=== PATIENT | male | born 1985 | race African-American/Black ===

== ENCOUNTER 2021-11-27 12:55 | Inpatient (IN) | payer OTHER, MEDICAID ==
[~2021-11-27] VITALS: Ht 167.6 cm; Wt 76.2 kg
[2021-11-27] MEDS ORDERED: ACETAMINOPHEN 325 MG TABLET PO PRN (16:45)
[2021-11-27 17:10] VITALS: BP 115/57
[2021-11-27] MEDS: ETHYL ALCOHOL 62% ANTISEPTIC NASAL SANITIZER 0.6 ML AMPUL NASAL SCH (20:20)
[2021-11-27] MEDS: DOCUSATE SODIUM 100 MG CAPSULE PO SCH (20:21)
[2021-11-27] MEDS: PANTOPRAZOLE SODIUM 40 MG DR TABLET PO SCH (20:21)
[2021-11-27] MEDS: MELATONIN 3 MG TABLET PO PRN (20:21)
[2021-11-27] MEDS: RIFAXIMIN 550 MG TABLET PO SCH (20:22)
[2021-11-27] MEDS: SENNA 187 MG TABLET PO SCH (20:23)
[2021-11-27] MEDS: LACTULOSE 20 GM/30 ML SOLUTION UDCUP PO SCH (20:23)
[2021-11-27] MEDS ORDERED: PANTOPRAZOLE SODIUM 40 MG DR TABLET PO SCH (21:00)
[2021-11-28 01:30] VITALS: BP 114/59
[2021-11-28 07:22] LABS: BASOPHILS % (AUTO) 0.6 % (0.0-2.0); EOSINOPHILS % (AUTO) 2.6 % (1.0-6.0); HEMATOCRIT 21.2 % (41-53); HEMOGLOBIN 7.2 g/dL (13.5-17.5); LYMPHOCYTES # (AUTO) 2.2 K/uL (1.0-4.8); LYMPHOCYTES % (AUTO) 30.5 % (22.0-44.0); MEAN CORPUSCULAR HEMOGLOBIN 31.1 pg (26.0-34.0); MEAN CORPUSCULAR HGB CONC 33.8 G/dL (31.0-37.0); MEAN CORPUSCULAR VOLUME 92 fL (80-100); MONOCYTES # (AUTO) 0.4 K/uL (0.1-1.0); MONOCYTES % (AUTO) 6.1 % (2.0-9.0); NEUTROPHILS # (AUTO) 4.3 K/uL (1.8-7.7); NEUTROPHILS % (AUTO) 60.2 % (40.0-70.0); PLATELET COUNT (AUTO) 137 K/uL (150-450); RED BLOOD CELL COUNT(AUTO) 2.31 MIL/uL (4.50-5.90); RED CELL DISTRIBUTION WIDTH 24.3 % (11.5-14.5)
[2021-11-28 07:29] LABS: ALANINE AMINOTRANSFERASE 35 U/L (12-78); ALBUMIN 1.7 g/dL (3.4-5.0); ALKALINE PHOSPHATASE 194 U/L (46-116); ANION GAP 8 mmol/L (8-16); ASPARTATE AMINOTRANSFERASE 56 U/L (15-37); BILIRUBIN,TOTAL 10.2 mg/dL (0.1-1.0); CALCIUM, TOTAL 7.8 mg/dL (8.8-10.5); CARBON DIOXIDE 24 mmol/L (22-29); CHLORIDE 104 mmol/L (98-107); CREATININE 0.84 mg/dL (0.60-1.30); GLOMERULAR FILTR. RATE CALC > 60 mL/min (>60); GLUCOSE,RANDOM 121 mg/dL (70-110); POTASSIUM 3.3 mmol/L (3.5-5.1); SODIUM SERUM 136 mmol/L (136-145); UREA NITROGEN, BLOOD 4 mg/dL (7-18)
[2021-11-28] MEDS: FOLIC ACID 1 MG TABLET PO SCH (08:22)
[2021-11-28] MEDS: PANTOPRAZOLE SODIUM 40 MG DR TABLET PO SCH ×2 (08:22→20:40)
[2021-11-28] MEDS: DOCUSATE SODIUM 100 MG CAPSULE PO SCH ×2 (08:22→20:38)
[2021-11-28] MEDS: LACTULOSE 20 GM/30 ML SOLUTION UDCUP PO SCH ×3 (08:22→20:38)
[2021-11-28] MEDS: RIFAXIMIN 550 MG TABLET PO SCH ×2 (08:22→20:41)
[2021-11-28] MEDS: NICOTINE 14 MG/24 HOUR PATCH TD SCH (08:23)
[2021-11-28] MEDS: ETHYL ALCOHOL 62% ANTISEPTIC NASAL SANITIZER 0.6 ML AMPUL NASAL SCH ×2 (08:24→20:37)
[2021-11-28 10:00] VITALS: BP 100/54
[2021-11-28] MEDS ORDERED: POTASSIUM CHLORIDE 10 MEQ ER TABLET PO ONE (12:15)
[2021-11-28 16:53] VITALS: BP 117/68
[2021-11-28] MEDS: SENNA 187 MG TABLET PO SCH (20:41)
[2021-11-28] MEDS: MELATONIN 3 MG TABLET PO PRN (20:41)
[2021-11-28 23:48] VITALS: BP 110/57
[2021-11-29] MEDS: ETHYL ALCOHOL 62% ANTISEPTIC NASAL SANITIZER 0.6 ML AMPUL NASAL SCH ×2 (08:00→21:11)
[2021-11-29] MEDS: LACTULOSE 20 GM/30 ML SOLUTION UDCUP PO SCH ×3 (08:00→21:00)
[2021-11-29] MEDS: PANTOPRAZOLE SODIUM 40 MG DR TABLET PO SCH ×2 (08:02→21:10)
[2021-11-29] MEDS: FOLIC ACID 1 MG TABLET PO SCH (08:02)
[2021-11-29] MEDS: NICOTINE 14 MG/24 HOUR PATCH TD SCH (08:03)
[2021-11-29] MEDS: DOCUSATE SODIUM 100 MG CAPSULE PO SCH ×2 (08:03→21:10)
[2021-11-29] MEDS: RIFAXIMIN 550 MG TABLET PO SCH ×2 (08:03→21:10)
[2021-11-29] MEDS ORDERED: THIAMINE 100 MG TABLET PO SCH (09:00)
[2021-11-29] MEDS ORDERED: MULTIVITAMINS WITH MINERALS, THERAPEUTIC TABLET PO SCH (09:00)
[2021-11-29 10:36] VITALS: BP 112/56
[2021-11-29 11:13] LABS: BASOPHILS % (AUTO) 0.6 % (0.0-2.0); EOSINOPHILS % (AUTO) 2.2 % (1.0-6.0); HEMATOCRIT 22.7 % (41-53); HEMOGLOBIN 7.7 g/dL (13.5-17.5); LYMPHOCYTES # (AUTO) 2.2 K/uL (1.0-4.8); LYMPHOCYTES % (AUTO) 30.2 % (22.0-44.0); MEAN CORPUSCULAR HGB CONC 33.8 G/dL (31.0-37.0); MEAN CORPUSCULAR VOLUME 92 fL (80-100); MONOCYTES # (AUTO) 0.5 K/uL (0.1-1.0); MONOCYTES % (AUTO) 6.8 % (2.0-9.0); NEUTROPHILS # (AUTO) 4.4 K/uL (1.8-7.7); NEUTROPHILS % (AUTO) 60.2 % (40.0-70.0); PLATELET COUNT (AUTO) 152 K/uL (150-450); RED BLOOD CELL COUNT(AUTO) 2.47 MIL/uL (4.50-5.90); RED CELL DISTRIBUTION WIDTH 24.4 % (11.5-14.5)
[2021-11-29 11:24] LABS: INR 2.6 (0.9-1.1); PROTHROMBIN TIME 26.5 SEC (9.4-11.6)
[2021-11-29 11:36] LABS: ANION GAP 9 mmol/L (8-16); CALCIUM, TOTAL 7.7 mg/dL (8.8-10.5); CARBON DIOXIDE 23 mmol/L (22-29); CHLORIDE 104 mmol/L (98-107); CREATININE 0.93 mg/dL (0.60-1.30); GLOMERULAR FILTR. RATE CALC > 60 mL/min (>60); GLUCOSE,RANDOM 113 mg/dL (70-110); POTASSIUM 3.6 mmol/L (3.5-5.1); SODIUM SERUM 136 mmol/L (136-145); UREA NITROGEN, BLOOD 3 mg/dL (7-18)
[2021-11-29 16:30] VITALS: BP 115/70
[2021-11-29] MEDS: SENNA 187 MG TABLET PO SCH (21:09)
[2021-11-29] MEDS: MAGNESIUM OXIDE 400 MG TABLET PO SCH (21:10)
[2021-11-29] MEDS: MELATONIN 3 MG TABLET PO PRN (21:10)
[2021-11-29] MEDS: ATORVASTATIN CALCIUM 20 MG TABLET PO SCH (21:10)
[2021-11-30 00:15] VITALS: BP 106/57
[2021-11-30] MEDS: LACTULOSE 20 GM/30 ML SOLUTION UDCUP PO SCH ×3 (08:47→21:09)
[2021-11-30] MEDS: ETHYL ALCOHOL 62% ANTISEPTIC NASAL SANITIZER 0.6 ML AMPUL NASAL SCH ×2 (08:47→21:09)
[2021-11-30] MEDS: RIFAXIMIN 550 MG TABLET PO SCH (08:48)
[2021-11-30] MEDS: THIAMINE 100 MG TABLET PO SCH (08:48)
[2021-11-30] MEDS: FOLIC ACID 1 MG TABLET PO SCH (08:49)
[2021-11-30] MEDS: NICOTINE 14 MG/24 HOUR PATCH TD SCH (08:49)
[2021-11-30] MEDS: MULTIVITAMINS WITH MINERALS, THERAPEUTIC TABLET PO SCH (08:49)
[2021-11-30] MEDS: PANTOPRAZOLE SODIUM 40 MG DR TABLET PO SCH ×2 (08:49→21:09)
[2021-11-30] MEDS: MAGNESIUM OXIDE 400 MG TABLET PO SCH ×2 (08:49→21:09)
[2021-11-30] MEDS: DOCUSATE SODIUM 100 MG CAPSULE PO SCH ×2 (08:50→21:09)
[2021-11-30] MEDS ORDERED: ASPIRIN 81 MG CHEWABLE TABLET PO SCH (09:00)
[2021-11-30 10:56] VITALS: BP 111/66
[2021-11-30] MEDS: FERROUS SULFATE 325 MG EC TABLET PO SCH (18:10)
[2021-11-30 18:36] VITALS: BP 109/67
[2021-11-30] MEDS: ATORVASTATIN CALCIUM 20 MG TABLET PO SCH (21:09)
[2021-11-30] MEDS: SENNA 187 MG TABLET PO SCH (21:09)
[2021-12-01 01:35] VITALS: BP 117/65
[2021-12-01 07:45] LABS: EOSINOPHILS % (AUTO) 3.1 % (1.0-6.0); HEMATOCRIT 23.3 % (41-53); HEMOGLOBIN 7.9 g/dL (13.5-17.5); LYMPHOCYTES # (AUTO) 1.2 K/uL (1.0-4.8); LYMPHOCYTES % (AUTO) 16.8 % (22.0-44.0); MEAN CORPUSCULAR VOLUME 91 fL (80-100); MONOCYTES # (AUTO) 0.8 K/uL (0.1-1.0); MONOCYTES % (AUTO) 11.8 % (2.0-9.0); NEUTROPHILS # (AUTO) 4.7 K/uL (1.8-7.7); NEUTROPHILS % (AUTO) 67.3 % (40.0-70.0); PLATELET COUNT (AUTO) 168 K/uL (150-450); RED BLOOD CELL COUNT(AUTO) 2.55 MIL/uL (4.50-5.90); RED CELL DISTRIBUTION WIDTH 23.9 % (11.5-14.5)
[2021-12-01 07:56] LABS: ALANINE AMINOTRANSFERASE 30 U/L (12-78); ALBUMIN 1.7 g/dL (3.4-5.0); ALKALINE PHOSPHATASE 210 U/L (46-116); ANION GAP 4 mmol/L (8-16); ASPARTATE AMINOTRANSFERASE 57 U/L (15-37); BILIRUBIN,TOTAL 9.5 mg/dL (0.1-1.0); CALCIUM, TOTAL 7.8 mg/dL (8.8-10.5); CARBON DIOXIDE 28 mmol/L (22-29); CHLORIDE 104 mmol/L (98-107); CREATININE 0.89 mg/dL (0.60-1.30); GLOMERULAR FILTR. RATE CALC > 60 mL/min (>60); GLUCOSE,RANDOM 111 mg/dL (70-110); POTASSIUM 3.6 mmol/L (3.5-5.1); SODIUM SERUM 136 mmol/L (136-145); TOTAL PROTEIN, SERUM 6.1 g/dL (6.4-8.2); UREA NITROGEN, BLOOD 3 mg/dL (7-18)
[2021-12-01] MEDS: FERROUS SULFATE 325 MG EC TABLET PO SCH ×2 (08:00→19:41)
[2021-12-01] MEDS: MULTIVITAMINS WITH MINERALS, THERAPEUTIC TABLET PO SCH (08:00)
[2021-12-01] MEDS: PANTOPRAZOLE SODIUM 40 MG DR TABLET PO SCH ×2 (08:00→19:53)
[2021-12-01] MEDS: ETHYL ALCOHOL 62% ANTISEPTIC NASAL SANITIZER 0.6 ML AMPUL NASAL SCH ×2 (08:00→19:53)
[2021-12-01] MEDS: THIAMINE 100 MG TABLET PO SCH (08:00)
[2021-12-01] MEDS: MAGNESIUM OXIDE 400 MG TABLET PO SCH ×3 (08:00→19:53)
[2021-12-01] MEDS: LACTULOSE 20 GM/30 ML SOLUTION UDCUP PO SCH ×2 (08:00→19:54)
[2021-12-01] MEDS: FOLIC ACID 1 MG TABLET PO SCH (08:00)
[2021-12-01] MEDS: DOCUSATE SODIUM 100 MG CAPSULE PO SCH ×2 (08:01→19:53)
[2021-12-01] MEDS: NICOTINE 14 MG/24 HOUR PATCH TD SCH (08:01)
[2021-12-01 09:03] VITALS: BP 115/64
[2021-12-01 16:28] VITALS: BP 108/61
[2021-12-01] MEDS: SENNA 187 MG TABLET PO SCH (19:53)
[2021-12-01] MEDS: ATORVASTATIN CALCIUM 20 MG TABLET PO SCH (19:53)
[2021-12-01] MEDS: MELATONIN 3 MG TABLET PO PRN (20:30)
[2021-12-02] VITALS: BP 111/58
[2021-12-02] MEDS: MAGNESIUM OXIDE 400 MG TABLET PO SCH ×3 (07:59→20:15)
[2021-12-02] MEDS: ETHYL ALCOHOL 62% ANTISEPTIC NASAL SANITIZER 0.6 ML AMPUL NASAL SCH ×2 (07:59→20:15)
[2021-12-02] MEDS: PANTOPRAZOLE SODIUM 40 MG DR TABLET PO SCH ×2 (07:59→20:15)
[2021-12-02] MEDS: THIAMINE 100 MG TABLET PO SCH (07:59)
[2021-12-02] MEDS: FOLIC ACID 1 MG TABLET PO SCH (07:59)
[2021-12-02] MEDS: DOCUSATE SODIUM 100 MG CAPSULE PO SCH ×2 (07:59→20:15)
[2021-12-02] MEDS: NICOTINE 14 MG/24 HOUR PATCH TD SCH (07:59)
[2021-12-02] MEDS: LACTULOSE 20 GM/30 ML SOLUTION UDCUP PO SCH ×2 (08:00→20:15)
[2021-12-02] MEDS: FERROUS SULFATE 325 MG EC TABLET PO SCH ×2 (08:00→18:33)
[2021-12-02] MEDS: MULTIVITAMINS WITH MINERALS, THERAPEUTIC TABLET PO SCH (08:00)
[2021-12-02 09:05] VITALS: BP 104/72
[2021-12-02 16:02] VITALS: BP 115/69
[2021-12-02] MEDS: SENNA 187 MG TABLET PO SCH (20:15)
[2021-12-02] MEDS: ATORVASTATIN CALCIUM 20 MG TABLET PO SCH (20:15)
[2021-12-03] VITALS: BP 113/57
[2021-12-03] MEDS: LACTULOSE 20 GM/30 ML SOLUTION UDCUP PO SCH ×2 (07:53→21:21)
[2021-12-03] MEDS: ETHYL ALCOHOL 62% ANTISEPTIC NASAL SANITIZER 0.6 ML AMPUL NASAL SCH ×2 (07:53→21:21)
[2021-12-03] MEDS: DOCUSATE SODIUM 100 MG CAPSULE PO SCH ×2 (07:54→21:21)
[2021-12-03] MEDS: FOLIC ACID 1 MG TABLET PO SCH (07:54)
[2021-12-03] MEDS: NICOTINE 14 MG/24 HOUR PATCH TD SCH (07:54)
[2021-12-03] MEDS: FERROUS SULFATE 325 MG EC TABLET PO SCH ×2 (07:54→16:49)
[2021-12-03] MEDS: THIAMINE 100 MG TABLET PO SCH (07:54)
[2021-12-03] MEDS: PANTOPRAZOLE SODIUM 40 MG DR TABLET PO SCH ×2 (07:54→21:21)
[2021-12-03] MEDS: MULTIVITAMINS WITH MINERALS, THERAPEUTIC TABLET PO SCH (07:54)
[2021-12-03] MEDS: MAGNESIUM OXIDE 400 MG TABLET PO SCH ×3 (08:27→21:21)
[2021-12-03 10:06] VITALS: BP 114/62
[2021-12-03 16:35] VITALS: BP 111/66
[2021-12-03] MEDS: SENNA 187 MG TABLET PO SCH (21:21)
[2021-12-03] MEDS: ATORVASTATIN CALCIUM 20 MG TABLET PO SCH (21:22)
[2021-12-04 02:48] VITALS: BP 111/65
[2021-12-04 07:02] LABS: BASOPHILS % (AUTO) 0.5 % (0.0-2.0); EOSINOPHILS % (AUTO) 2.7 % (1.0-6.0); HEMATOCRIT 21.3 % (41-53); HEMOGLOBIN 7.3 g/dL (13.5-17.5); LYMPHOCYTES # (AUTO) 1.4 K/uL (1.0-4.8); LYMPHOCYTES % (AUTO) 19.7 % (22.0-44.0); MEAN CORPUSCULAR HEMOGLOBIN 31.1 pg (26.0-34.0); MEAN CORPUSCULAR HGB CONC 34.2 G/dL (31.0-37.0); MEAN CORPUSCULAR VOLUME 91 fL (80-100); MONOCYTES # (AUTO) 0.9 K/uL (0.1-1.0); MONOCYTES % (AUTO) 12.5 % (2.0-9.0); NEUTROPHILS # (AUTO) 4.7 K/uL (1.8-7.7); NEUTROPHILS % (AUTO) 64.6 % (40.0-70.0); PLATELET COUNT (AUTO) 164 K/uL (150-450); RED BLOOD CELL COUNT(AUTO) 2.34 MIL/uL (4.50-5.90); RED CELL DISTRIBUTION WIDTH 24.4 % (11.5-14.5)
[2021-12-04 07:17] LABS: ALANINE AMINOTRANSFERASE 25 U/L (12-78); ALBUMIN 1.5 g/dL (3.4-5.0); ALKALINE PHOSPHATASE 195 U/L (46-116); ANION GAP 7 mmol/L (8-16); ASPARTATE AMINOTRANSFERASE 60 U/L (15-37); BILIRUBIN,TOTAL 7.8 mg/dL (0.1-1.0); CALCIUM, TOTAL 7.5 mg/dL (8.8-10.5); CARBON DIOXIDE 25 mmol/L (22-29); CHLORIDE 104 mmol/L (98-107); CREATININE 0.93 mg/dL (0.60-1.30); GLOMERULAR FILTR. RATE CALC > 60 mL/min (>60); GLUCOSE,RANDOM 118 mg/dL (70-110); PHOSPHORUS 2.6 mg/dL (2.5-4.9); POTASSIUM 3.1 mmol/L (3.5-5.1); SODIUM SERUM 136 mmol/L (136-145); TOTAL PROTEIN, SERUM 5.7 g/dL (6.4-8.2); UREA NITROGEN, BLOOD 4 mg/dL (7-18)
[2021-12-04] MEDS: ETHYL ALCOHOL 62% ANTISEPTIC NASAL SANITIZER 0.6 ML AMPUL NASAL SCH ×2 (07:47→20:52)
[2021-12-04] MEDS: PANTOPRAZOLE SODIUM 40 MG DR TABLET PO SCH ×2 (07:48→20:52)
[2021-12-04] MEDS: THIAMINE 100 MG TABLET PO SCH (07:48)
[2021-12-04] MEDS: DOCUSATE SODIUM 100 MG CAPSULE PO SCH ×3 (07:49→21:00)
[2021-12-04] MEDS: FOLIC ACID 1 MG TABLET PO SCH (07:49)
[2021-12-04] MEDS: FERROUS SULFATE 325 MG EC TABLET PO SCH ×2 (07:49→18:07)
[2021-12-04] MEDS: MAGNESIUM OXIDE 400 MG TABLET PO SCH ×4 (07:49→20:52)
[2021-12-04] MEDS: LACTULOSE 20 GM/30 ML SOLUTION UDCUP PO SCH ×2 (07:50→18:08)
[2021-12-04] MEDS: NICOTINE 14 MG/24 HOUR PATCH TD SCH (07:50)
[2021-12-04] MEDS: MULTIVITAMINS WITH MINERALS, THERAPEUTIC TABLET PO SCH (07:50)
[2021-12-04] MEDS ORDERED: POTASSIUM CHLORIDE 20 MEQ ER TABLET PO ONE (08:00)
[2021-12-04] MEDS ORDERED: PHYTONADIONE 10 MG/1 ML AMP SQ ONE (08:30)
[2021-12-04] MEDS ORDERED: ERGOCALCIFEROL (VIT D2) 50,000 UNITS [1,250 MCG] CAPSULE PO SCH (09:00)
[2021-12-04 10:30] VITALS: BP 117/73
[2021-12-04 16:02] VITALS: BP 124/68
[2021-12-04] MEDS: SENNA 187 MG TABLET PO SCH ×2 (20:52→21:00)
[2021-12-04] MEDS: MELATONIN 3 MG TABLET PO PRN (20:52)
[2021-12-04] MEDS: ATORVASTATIN CALCIUM 20 MG TABLET PO SCH (20:53)
[2021-12-05 02:35] VITALS: BP 122/59
[2021-12-05 06:27] LABS: BASOPHILS % (AUTO) 1.2 % (0.0-2.0); EOSINOPHILS % (AUTO) 2.5 % (1.0-6.0); HEMATOCRIT 21.4 % (41-53); HEMOGLOBIN 7.2 g/dL (13.5-17.5); LYMPHOCYTES # (AUTO) 1.3 K/uL (1.0-4.8); LYMPHOCYTES % (AUTO) 17.5 % (22.0-44.0); MEAN CORPUSCULAR HGB CONC 33.5 G/dL (31.0-37.0); MEAN CORPUSCULAR VOLUME 93 fL (80-100); MONOCYTES # (AUTO) 1.1 K/uL (0.1-1.0); MONOCYTES % (AUTO) 15.4 % (2.0-9.0); NEUTROPHILS # (AUTO) 4.7 K/uL (1.8-7.7); NEUTROPHILS % (AUTO) 63.4 % (40.0-70.0); PLATELET COUNT (AUTO) 165 K/uL (150-450); RED BLOOD CELL COUNT(AUTO) 2.31 MIL/uL (4.50-5.90); RED CELL DISTRIBUTION WIDTH 24.2 % (11.5-14.5)
[2021-12-05 06:34] LABS: INR 2.8 (0.9-1.1); PROTHROMBIN TIME 28.2 SEC (9.4-11.6)
[2021-12-05] MEDS: FERROUS SULFATE 325 MG EC TABLET PO SCH ×2 (07:44→16:44)
[2021-12-05] MEDS: MULTIVITAMINS WITH MINERALS, THERAPEUTIC TABLET PO SCH (07:44)
[2021-12-05] MEDS: FOLIC ACID 1 MG TABLET PO SCH (07:44)
[2021-12-05] MEDS: MAGNESIUM OXIDE 400 MG TABLET PO SCH ×3 (07:44→21:02)
[2021-12-05] MEDS: THIAMINE 100 MG TABLET PO SCH (07:44)
[2021-12-05] MEDS: DOCUSATE SODIUM 100 MG CAPSULE PO SCH ×2 (07:45→21:00)
[2021-12-05] MEDS: NICOTINE 14 MG/24 HOUR PATCH TD SCH (07:45)
[2021-12-05] MEDS: PANTOPRAZOLE SODIUM 40 MG DR TABLET PO SCH ×2 (07:45→21:03)
[2021-12-05] MEDS: LACTULOSE 20 GM/30 ML SOLUTION UDCUP PO SCH ×2 (07:46→16:44)
[2021-12-05] MEDS: ETHYL ALCOHOL 62% ANTISEPTIC NASAL SANITIZER 0.6 ML AMPUL NASAL SCH ×2 (07:46→21:01)
[2021-12-05 10:21] VITALS: BP 115/58
[2021-12-05] MEDS: FUROSEMIDE 20 MG TABLET PO SCH (14:18)
[2021-12-05 16:37] VITALS: BP 117/75
[2021-12-05] MEDS: SENNA 187 MG TABLET PO SCH (21:00)
[2021-12-05] MEDS: ATORVASTATIN CALCIUM 20 MG TABLET PO SCH (21:03)
[2021-12-06] VITALS: BP 119/76
[2021-12-06 07:55] VITALS: BP 111/71
[2021-12-06] MEDS: ETHYL ALCOHOL 62% ANTISEPTIC NASAL SANITIZER 0.6 ML AMPUL NASAL SCH ×2 (08:35→20:25)
[2021-12-06] MEDS: MULTIVITAMINS WITH MINERALS, THERAPEUTIC TABLET PO SCH (08:36)
[2021-12-06] MEDS: THIAMINE 100 MG TABLET PO SCH (08:36)
[2021-12-06] MEDS: LACTULOSE 20 GM/30 ML SOLUTION UDCUP PO SCH ×2 (08:36→16:35)
[2021-12-06] MEDS: FUROSEMIDE 20 MG TABLET PO SCH (08:36)
[2021-12-06] MEDS: FERROUS SULFATE 325 MG EC TABLET PO SCH ×2 (08:36→16:35)
[2021-12-06] MEDS: FOLIC ACID 1 MG TABLET PO SCH (08:36)
[2021-12-06] MEDS: NICOTINE 14 MG/24 HOUR PATCH TD SCH (08:36)
[2021-12-06] MEDS: MAGNESIUM OXIDE 400 MG TABLET PO SCH ×3 (08:37→20:25)
[2021-12-06] MEDS: DOCUSATE SODIUM 100 MG CAPSULE PO SCH ×2 (08:37→20:25)
[2021-12-06] MEDS: PANTOPRAZOLE SODIUM 40 MG DR TABLET PO SCH ×2 (08:37→20:25)
[2021-12-06 09:49] LABS: ANION GAP 10 mmol/L (8-16); CALCIUM, TOTAL 7.8 mg/dL (8.8-10.5); CARBON DIOXIDE 25 mmol/L (22-29); CHLORIDE 104 mmol/L (98-107); CREATININE 0.93 mg/dL (0.60-1.30); GLOMERULAR FILTR. RATE CALC > 60 mL/min (>60); GLUCOSE,RANDOM 127 mg/dL (70-110); POTASSIUM 3.5 mmol/L (3.5-5.1); SODIUM SERUM 139 mmol/L (136-145); UREA NITROGEN, BLOOD 4 mg/dL (7-18)
[2021-12-06] MEDS ORDERED: POTASSIUM CHLORIDE 20 MEQ ER TABLET PO PRN (11:15)
[2021-12-06] MEDS ORDERED: POTASSIUM CHL 10 MEQ/WATER 50 ML IV PRN (11:15)
[2021-12-06 11:50] LABS: BASOPHILS % (AUTO) 0.7 % (0.0-2.0); HEMATOCRIT 25.9 % (41-53); HEMOGLOBIN 8.7 g/dL (13.5-17.5); LYMPHOCYTES # (AUTO) 1.7 K/uL (1.0-4.8); LYMPHOCYTES % (AUTO) 20.8 % (22.0-44.0); MEAN CORPUSCULAR HEMOGLOBIN 31.5 pg (26.0-34.0); MEAN CORPUSCULAR HGB CONC 33.8 G/dL (31.0-37.0); MEAN CORPUSCULAR VOLUME 93 fL (80-100); MONOCYTES # (AUTO) 0.7 K/uL (0.1-1.0); NEUTROPHILS # (AUTO) 5.3 K/uL (1.8-7.7); NEUTROPHILS % (AUTO) 66.5 % (40.0-70.0); PLATELET COUNT (AUTO) 198 K/uL (150-450); RED BLOOD CELL COUNT(AUTO) 2.77 MIL/uL (4.50-5.90); RED CELL DISTRIBUTION WIDTH 25.1 % (11.5-14.5)
[2021-12-06] MEDS ORDERED: POTASSIUM CHLORIDE 10 MEQ ER TABLET PO ONE (14:15)
[2021-12-06 16:18] VITALS: BP 119/71
[2021-12-06] MEDS ORDERED: POTASSIUM CHLORIDE 20 MEQ ER TABLET PO ONE (19:30)
[2021-12-06] MEDS: ATORVASTATIN CALCIUM 20 MG TABLET PO SCH (20:25)
[2021-12-06] MEDS: SENNA 187 MG TABLET PO SCH (20:26)
[2021-12-06] MEDS: MELATONIN 3 MG TABLET PO PRN ×2 (21:11→22:33)
[2021-12-07 00:45] VITALS: BP 120/70
[2021-12-07] MEDS ORDERED: POTASSIUM CHLORIDE 10 MEQ ER TABLET PO ONE ×4 (01:15→22:15)
[2021-12-07] MEDS ORDERED: ATOR20TA86 PO (04:26)
[2021-12-07] MEDS ORDERED: MULT-1239 PO (04:26)
[2021-12-07] MEDS ORDERED: ERGO500054 PO (04:26)
[2021-12-07] MEDS ORDERED: LACT10SO10 PO (04:26)
[2021-12-07] MEDS ORDERED: FURO20 PO (04:26)
[2021-12-07] MEDS ORDERED: THIA100T80 PO (04:26)
[2021-12-07] MEDS ORDERED: NICO-703 TD (04:26)
[2021-12-07] MEDS ORDERED: FOLI-130 PO (04:26)
[2021-12-07] MEDS ORDERED: FERR325T27 PO (04:26)
[2021-12-07] MEDS ORDERED: MAGN400T57 PO (04:26)
[2021-12-07] MEDS ORDERED: PANT-31 PO (04:26)
[2021-12-07] MEDS: LACTULOSE 20 GM/30 ML SOLUTION UDCUP PO SCH ×2 (08:09→17:27)
[2021-12-07] MEDS: THIAMINE 100 MG TABLET PO SCH (08:10)
[2021-12-07] MEDS: FUROSEMIDE 20 MG TABLET PO SCH (08:10)
[2021-12-07] MEDS: FOLIC ACID 1 MG TABLET PO SCH (08:10)
[2021-12-07] MEDS: DOCUSATE SODIUM 100 MG CAPSULE PO SCH ×2 (08:11→21:18)
[2021-12-07] MEDS: MAGNESIUM OXIDE 400 MG TABLET PO SCH ×3 (08:11→21:18)
[2021-12-07] MEDS: NICOTINE 14 MG/24 HOUR PATCH TD SCH (08:11)
[2021-12-07] MEDS: FERROUS SULFATE 325 MG EC TABLET PO SCH ×2 (08:11→17:27)
[2021-12-07] MEDS: PANTOPRAZOLE SODIUM 40 MG DR TABLET PO SCH ×2 (08:11→21:18)
[2021-12-07] MEDS: MULTIVITAMINS WITH MINERALS, THERAPEUTIC TABLET PO SCH (08:11)
[2021-12-07 09:05] VITALS: BP 109/65
[2021-12-07] MEDS: ETHYL ALCOHOL 62% ANTISEPTIC NASAL SANITIZER 0.6 ML AMPUL NASAL SCH ×2 (09:20→21:18)
[2021-12-07 16:30] VITALS: BP 122/65
[2021-12-07] MEDS: SENNA 187 MG TABLET PO SCH (21:00)
[2021-12-07] MEDS: ATORVASTATIN CALCIUM 20 MG TABLET PO SCH (21:18)
[2021-12-07] MEDS: MELATONIN 3 MG TABLET PO PRN (21:21)
[2021-12-08 00:32] VITALS: BP 111/67
[2021-12-08] MEDS: LACTULOSE 20 GM/30 ML SOLUTION UDCUP PO SCH ×2 (08:46→17:01)
[2021-12-08] MEDS: ETHYL ALCOHOL 62% ANTISEPTIC NASAL SANITIZER 0.6 ML AMPUL NASAL SCH ×2 (08:46→21:32)
[2021-12-08] MEDS: MAGNESIUM OXIDE 400 MG TABLET PO SCH ×3 (08:46→21:32)
[2021-12-08] MEDS: DOCUSATE SODIUM 100 MG CAPSULE PO SCH ×2 (08:47→21:32)
[2021-12-08] MEDS: FOLIC ACID 1 MG TABLET PO SCH (08:47)
[2021-12-08] MEDS: POTASSIUM CHLORIDE 10 MEQ ER TABLET PO SCH (08:47)
[2021-12-08] MEDS: FUROSEMIDE 20 MG TABLET PO SCH (08:47)
[2021-12-08] MEDS: FERROUS SULFATE 325 MG EC TABLET PO SCH ×2 (08:47→17:01)
[2021-12-08] MEDS: THIAMINE 100 MG TABLET PO SCH (08:47)
[2021-12-08] MEDS: PANTOPRAZOLE SODIUM 40 MG DR TABLET PO SCH ×2 (08:47→21:32)
[2021-12-08] MEDS: MULTIVITAMINS WITH MINERALS, THERAPEUTIC TABLET PO SCH (08:48)
[2021-12-08] MEDS: NICOTINE 14 MG/24 HOUR PATCH TD SCH (08:48)
[2021-12-08 10:08] VITALS: BP 114/71
[2021-12-08 16:30] VITALS: BP 118/63
[2021-12-08] MEDS: SENNA 187 MG TABLET PO SCH (21:00)
[2021-12-08] MEDS: ATORVASTATIN CALCIUM 20 MG TABLET PO SCH (21:32)
[2021-12-08 23:00] VITALS: BP 121/66
[2021-12-09 09:05] VITALS: BP 114/71
[2021-12-09] MEDS: LACTULOSE 20 GM/30 ML SOLUTION UDCUP PO SCH ×2 (09:32→21:05)
[2021-12-09] MEDS: MULTIVITAMINS WITH MINERALS, THERAPEUTIC TABLET PO SCH (09:32)
[2021-12-09] MEDS: FUROSEMIDE 20 MG TABLET PO SCH (09:32)
[2021-12-09] MEDS: THIAMINE 100 MG TABLET PO SCH (09:32)
[2021-12-09] MEDS: ETHYL ALCOHOL 62% ANTISEPTIC NASAL SANITIZER 0.6 ML AMPUL NASAL SCH ×2 (09:32→21:07)
[2021-12-09] MEDS: POTASSIUM CHLORIDE 10 MEQ ER TABLET PO SCH (09:32)
[2021-12-09] MEDS: DOCUSATE SODIUM 100 MG CAPSULE PO SCH ×2 (09:33→21:06)
[2021-12-09] MEDS: PANTOPRAZOLE SODIUM 40 MG DR TABLET PO SCH ×2 (09:33→21:06)
[2021-12-09] MEDS: FOLIC ACID 1 MG TABLET PO SCH (09:33)
[2021-12-09] MEDS: MAGNESIUM OXIDE 400 MG TABLET PO SCH ×3 (09:33→21:07)
[2021-12-09] MEDS: NICOTINE 14 MG/24 HOUR PATCH TD SCH (09:34)
[2021-12-09] MEDS: FERROUS SULFATE 325 MG EC TABLET PO SCH ×2 (11:48→21:05)
[2021-12-09 16:56] VITALS: BP 131/77
[2021-12-09] MEDS: SENNA 187 MG TABLET PO SCH (21:06)
[2021-12-09] MEDS: ATORVASTATIN CALCIUM 20 MG TABLET PO SCH (21:06)
[2021-12-09] MEDS: MELATONIN 3 MG TABLET PO PRN (21:08)
[2021-12-10] VITALS (12 sets, daily range): BP systolic 120–138; BP diastolic 66–89
[2021-12-10] MEDS: FERROUS SULFATE 325 MG EC TABLET PO SCH ×2 (07:30→16:48)
[2021-12-10 08:24] LABS: BASOPHILS % (AUTO) 0.5 % (0.0-2.0); EOSINOPHILS % (AUTO) 0.1 % (1.0-6.0); HEMATOCRIT 28.8 % (41-53); HEMOGLOBIN 9.7 g/dL (13.5-17.5); LYMPHOCYTES # (AUTO) 1.2 K/uL (1.0-4.8); LYMPHOCYTES % (AUTO) 10.3 % (22.0-44.0); MEAN CORPUSCULAR HEMOGLOBIN 31.6 pg (26.0-34.0); MEAN CORPUSCULAR HGB CONC 33.7 G/dL (31.0-37.0); MEAN CORPUSCULAR VOLUME 94 fL (80-100); MONOCYTES # (AUTO) 1.1 K/uL (0.1-1.0); MONOCYTES % (AUTO) 10.2 % (2.0-9.0); NEUTROPHILS # (AUTO) 8.9 K/uL (1.8-7.7); NEUTROPHILS % (AUTO) 78.9 % (40.0-70.0); PLATELET COUNT (AUTO) 151 K/uL (150-450); RED BLOOD CELL COUNT(AUTO) 3.07 MIL/uL (4.50-5.90); RED CELL DISTRIBUTION WIDTH 25.6 % (11.5-14.5)
[2021-12-10 08:29] LABS: ANION GAP 11 mmol/L (8-16); CALCIUM, TOTAL 8.2 mg/dL (8.8-10.5); CARBON DIOXIDE 22 mmol/L (22-29); CHLORIDE 102 mmol/L (98-107); CREATININE 1.06 mg/dL (0.60-1.30); GLOMERULAR FILTR. RATE CALC > 60 mL/min (>60); GLUCOSE,RANDOM 87 mg/dL (70-110); POTASSIUM 4.1 mmol/L (3.5-5.1); SODIUM SERUM 135 mmol/L (136-145); UREA NITROGEN, BLOOD 6 mg/dL (7-18)
[2021-12-10] MEDS: POTASSIUM CHLORIDE 10 MEQ ER TABLET PO SCH (09:00)
[2021-12-10] MEDS: PANTOPRAZOLE SODIUM 40 MG DR TABLET PO SCH ×2 (09:00→20:49)
[2021-12-10] MEDS: MAGNESIUM OXIDE 400 MG TABLET PO SCH ×3 (09:00→20:49)
[2021-12-10] MEDS: NICOTINE 14 MG/24 HOUR PATCH TD SCH (09:00)
[2021-12-10] MEDS: FUROSEMIDE 20 MG TABLET PO SCH (09:00)
[2021-12-10] MEDS: THIAMINE 100 MG TABLET PO SCH (09:00)
[2021-12-10] MEDS: FOLIC ACID 1 MG TABLET PO SCH (09:00)
[2021-12-10] MEDS: DOCUSATE SODIUM 100 MG CAPSULE PO SCH ×2 (09:00→20:49)
[2021-12-10] MEDS: ETHYL ALCOHOL 62% ANTISEPTIC NASAL SANITIZER 0.6 ML AMPUL NASAL SCH ×2 (09:00→20:48)
[2021-12-10] MEDS: LACTULOSE 20 GM/30 ML SOLUTION UDCUP PO SCH ×2 (09:00→16:48)
[2021-12-10] MEDS: MULTIVITAMINS WITH MINERALS, THERAPEUTIC TABLET PO SCH (09:00)
[2021-12-10 10:56] LABS: APPEARANCE,URINE CLEAR (CLEAR); GLUCOSE, URINE (UA) NEGATIVE (NEGATIVE); KETONES,URINE TRACE mg/dL (NEGATIVE); LEUKOCYTE ESTERASE ,URINE NEGATIVE (NEGATIVE); NITRATE,URINE NEGATIVE (NEGATIVE); OCCULT BLOOD,URINE NEGATIVE (NEGATIVE); PH,URINE 6.5 (5.0-8.0); PROTEIN,URINE 30-70 mg/dL (NEGATIVE); SPECIFIC GRAVITIY, URINE 1.029 (1.003-1.030)
[2021-12-10] MEDS ORDERED: LEVOFLOXACIN 500 MG/D5% WATER 100 ML IV SCH (11:00)
[2021-12-10 11:02] LABS: BILIRUBIN,URINE LARGE (NEGATIVE)
[2021-12-10 11:04] LABS: BACTERIA,URINE None Seen /HPF (None Seen); RBC,URINE 0-2 /HPF (0-2); WBC,URINE 0-2 /HPF (0-5)
[2021-12-10] MEDS ORDERED: SODIUM CHLORIDE 0.9% 1,000 ML ONE (11:46)
[2021-12-10] MEDS ORDERED: SODIUM CHLORIDE 0.9% 1,000 ML IV ONE (12:00)
[2021-12-10] MEDS ORDERED: SODIUM CHLORIDE 0.9% 100 ML ONE ×2 (14:04→16:45)
[2021-12-10] MEDS ORDERED: DEXTROSE 5%-0.45% SODIUM CHL 1,000 ML IV ONE (16:00)
[2021-12-10] MEDS ORDERED: MAGNESIUM SULFATE 2 GM/WATER 50 ML IV ONE (16:00)
[2021-12-10 17:33] LABS: COVID AG,FIA SOURCE NASAL SWAB
[2021-12-10] MEDS: SENNA 187 MG TABLET PO SCH (20:49)
[2021-12-10] MEDS: ATORVASTATIN CALCIUM 20 MG TABLET PO SCH (20:49)
[2021-12-11] VITALS: BP 120/73
[2021-12-11 06:00] VITALS: BP 119/86
[2021-12-11] MEDS: FERROUS SULFATE 325 MG EC TABLET PO SCH (07:30)
[2021-12-11 07:36] LABS: BASOPHILS % (AUTO) 0.1 % (0.0-2.0); EOSINOPHILS % (AUTO) 0.8 % (1.0-6.0); HEMATOCRIT 24.5 % (41-53); HEMOGLOBIN 8.4 g/dL (13.5-17.5); LYMPHOCYTES # (AUTO) 1.1 K/uL (1.0-4.8); MEAN CORPUSCULAR HEMOGLOBIN 32.4 pg (26.0-34.0); MEAN CORPUSCULAR HGB CONC 34.4 G/dL (31.0-37.0); MEAN CORPUSCULAR VOLUME 94 fL (80-100); MONOCYTES # (AUTO) 1.5 K/uL (0.1-1.0); MONOCYTES % (AUTO) 13.7 % (2.0-9.0); NEUTROPHILS # (AUTO) 8.3 K/uL (1.8-7.7); NEUTROPHILS % (AUTO) 75.4 % (40.0-70.0); PLATELET COUNT (AUTO) 137 K/uL (150-450); RED CELL DISTRIBUTION WIDTH 26.1 % (11.5-14.5)
[2021-12-11 07:41] VITALS: BP 128/73
== END 2021-12-11 08:38 | disposition short-term general hospital (02) | DRG 64 ==
LOC: 2WR 16:13
PROVIDERS: ADMIT Physical Medicine & Rehabilitation; ATTEND Physical Medicine & Rehabilitation
DX: I63.9 Cerebral infarction, unspecified (principal); A41.9 Sepsis, unspecified organism; G92.8 Other toxic encephalopathy; I85.00 Esophageal varices without bleeding; E44.0 Moderate protein-calorie malnutrition; D68.9 Coagulation defect, unspecified; R27.0 Ataxia, unspecified; K70.30 Alcoholic cirrhosis of liver without ascites; Z20.822 Contact with and (suspected) exposure to COVID-19; Z68.27 Body mass index [BMI] 27.0-27.9, adult; E83.42 Hypomagnesemia; F17.200 Nicotine dependence, unspecified, uncomplicated; D69.6 Thrombocytopenia, unspecified; D63.8 Anemia in other chronic diseases classified elsewhere; K72.90 Hepatic failure, unspecified without coma
CPT/HCPCS: 70450; 71045; 80048; 80053; 81001; 82140; 83735; 84100; 84132; 85025; 85610; 87040; 87077; 87081; 87205; 92507; 92523; 97110; 97112; 97116; 97163; 97167; 97530; 97535; 99366; J1956; J3430; J3475; J7030; J7050; 36415-L1; 36415-TC; U0003